=== PATIENT | male | born 1960 | race Caucasian/White ===

== ENCOUNTER → 2018-06-20 | Outpatient (REF) ==
--- NOTE | 2018-06-20 11:25 | Diagnostic Imaging Report ---
INDICATION: Pain to the left second digit. TIME OF EXAMINATION: 11:11 AM. TECHNIQUE: Three views of the left second finger were obtained. FINDINGS: There appears to be some generalized soft tissue swelling. No radiopaque foreign body is seen. The bony structures demonstrate normal alignment. No fractures are identified. The metacarpals are intact. There are some degenerative changes at the first CMC joint. IMPRESSION: Soft tissue swelling of the second digit. No acute bony abnormality is detected. Dictated by: Dictated on workstation # [id number]
== END | disposition home or self-care (01) ==
LOC: RAD 10:53
PROVIDERS: ATTEND Nurse Practitioner Family
CPT/HCPCS: 73140

== ENCOUNTER 2020-04-27 22:38 | Observation (INO) | payer BC, OTHER ==
[~2020-04-27] VITALS: Ht 175 cm; Wt 125.4 kg
--- NOTE | 2020-04-27 23:07 | ED Chest Pain ---
General Chief Complaint: Chest Pain Stated Complaint: CP X 3-4 DAYS Source: patient Exam Limitations: no limitations History of Present Illness Date Seen by Provider: Apr 27, 2020 Time Seen by Provider: 22:47 Initial Comments Patient presents ER by private conveyance from home with chief complaint that he is having chest pain substernal radiating through to his back mostly constant but will relieve for a few hours at a time. He points to the level of his xiph oid process. He denies having acid reflux or nausea. He has had his gallbladder out. He has a history of heart disease followed by Dr. Mittal although he has not seen him in over 10 years. He is not having fevers cough shortness of breath. He is not a smoker for the past 4 years. He denies high blood pressure but he has hyperlipidemia and previous coronary disease as well as he had multiple blood clots related to brain surgery for a small tumor years ago at so they put a IVC filter in place. He is not on blood thinners. He is on medicine for diabetes Metformin and aspirin, metoprolol. He claims a history of hyperlipidemia but is not on any statins. Primary care by Dr. Bautista. Allergies and Home Medications Allergies Coded Allergies: No Known Drug Allergies (Unverified , 04/27/20) Patient Home Medication List Home Medication List Reviewed: Yes Review of Systems Review of Systems Constitutional: No chills, No diaphoresis EENTM: No Blurred Vision, No Double Vision Respiratory: Denies Cough, Denies Shortness of Air Cardiovascular: See HPI, Chest Pain; Denies Edema Gastrointestinal: Denies Abdomen Distended, Denies Abdominal Pain, Denies Constipated, Denies Diarrhea, Denies Nausea Genitourinary: Denies Discharge, Denies Drainage Musculoskeletal: No back pain, No joint pain All Other Systems Reviewed Negative Unless Noted: Yes Past Sflylxt-Kbuekz-Lifyso Hx Patient Social History Alcohol Use: Denies Use Smoking Status: Former Smoker Type Used: Cigarettes Former Smoker, Quit: Jan 09, 2016 Physical Exam Vital Signs Vital Signs - First Documented 04/27/20 22:40 Temp 37.0 Pulse 89 Resp 18 B/P (MAP) 157/97 (117) O2 Delivery Room Air Capillary Refill : Height, Weight, BMI Height: '" Weight: lbs. oz. kg; BMI Method: General Appearance: No Apparent Distress, WD/WN HEENT: PERRL/EOMI, Pharynx Normal, Moist Mucous Membranes Neck: Full Range of Motion, Normal Inspection Respiratory: Chest Non Tender, Lungs Clear, Normal Breath Sounds, No Accessory Muscle Use, No Respiratory Distress Cardiovascular: Regular Rate, Rhythm, Normal Peripheral Pulses Extremity: Normal Capillary Refill, Normal Inspection Neurologic/Psychiatric: Alert, Oriented x3, No Motor/Sensory Deficits Skin: Normal Color, Warm/Dry Progress/Results/Core Measures Results/Orders Lab Results Laboratory Tests Test 04/27/20 22:50 Range/Units White Blood Count 9.9 4.3-11.0 10^3/uL Red Blood Count 5.72 H 4.30-5.52 10^6/uL Hemoglobin 16.2 13.3-17.7 g/dL Hematocrit 50 40-54 % Mean Corpuscular Volume 87 80-99 fL Mean Corpuscular Hemoglobin 28 25-34 pg Mean Corpuscular Hemoglobin Concent 33 32-36 g/dL Red Cell Distribution Width 13.2 10.0-14.5 % Platelet Count 179 130-400 10^3/uL Mean Platelet Volume 9.1 9.0-12.2 fL Immature Granulocyte % (Auto) 1 % Neutrophils (%) (Auto) 70 42-75 % Lymphocytes (%) (Auto) 18 12-44 % Monocytes (%) (Auto) 9 0-12 % Eosinophils (%) (Auto) 2 0-10 % Basophils (%) (Auto) 1 0-10 % Neutrophils # (Auto) 6.9 1.8-7.8 10^3/uL Lymphocytes # (Auto) 1.8 1.0-4.0 10^3/uL Monocytes # (Auto) 0.9 0.0-1.0 10^3/uL Eosinophils # (Auto) 0.2 0.0-0.3 10^3/uL Basophils # (Auto) 0.1 0.0-0.1 10^3/uL Immature Granulocyte # (Auto) 0.1 0.0-0.1 10^3/uL Prothrombin Time 12.9 12.2-14.7 SEC INR Comment 0.9 0.8-1.4 Activated Partial Thromboplast Time 29 24-35 SEC Sodium Level 137 135-145 MMOL/L Potassium Level 4.1 3.6-5.0 MMOL/L Chloride Level 104 98-107 MMOL/L Carbon Dioxide Level 22 21-32 MMOL/L Anion Gap 11 5-14 MMOL/L Blood Urea Nitrogen 15 7-18 MG/DL Creatinine 0.85 0.60-1.30 MG/DL Estimat Glomerular Filtration Rate > 60 BUN/Creatinine Ratio 18 Glucose Level 157 H 70-105 MG/DL Calcium Level 9.4 8.5-10.1 MG/DL Corrected Calcium 9.2 8.5-10.1 MG/DL Magnesium Level 2.1 1.6-2.4 MG/DL Total Bilirubin 0.4 0.1-1.0 MG/DL Aspartate Amino Transf (AST/SGOT) 12 5-34 U/L Alanine Aminotransferase (ALT/SGPT) 21 0-55 U/L Alkaline Phosphatase 112 40-136 U/L Myoglobin 31.3 10.0-92.0 NG/ML Troponin I < 0.028 <0.028 NG/ML B-Type Natriuretic Peptide 35.3 <100.0 PG/ML Total Protein 7.1 6.4-8.2 GM/DL Albumin 4.2 3.2-4.5 GM/DL Lipase 21 8-78 U/L My Orders Orders - PAYTON DAVID Cbc With Automated Diff (04/27/20 23:03) Magnesium (04/27/20 23:03) Chest 1 View, Ap/Pa Only (04/27/20 23:03) Comprehensive Metabolic Panel (04/27/20 23:03) Myoglobin Serum (04/27/20 23:03) Protime With Inr (04/27/20 23:03) Partial Thromboplastin Time (04/27/20 23:03) O2 (04/27/20 23:03) Lipid Panel (04/28/20 06:00) Ed Iv/Invasive Line Start (04/27/20 23:03) Lipase (04/27/20 23:03) BNP (04/27/20 23:03) Aspirin Chewable Tablet (Baby Aspirin Ch (04/27/20 23:15) Nitroglycerin 0.4 Mg Btl 25's (Nitrostat (04/27/20 23:15) Troponin I (04/27/20 22:50) Ed Iv/Invasive Line Start (04/27/20 23:50) Ns Iv 1000 Ml (Sodium Chloride 0.9%) (04/28/20 00:00) Ct Angio Chest W (04/28/20 00:01) Iohexol Injection (Omnipaque 350 Mg/Ml 1 (04/28/20 00:45) Contrast Received (Contrast Received) (04/28/20 00:45) Sodium Chloride Flush (Catheter Flush Sy (04/28/20 00:45) Ns (Ivpb) (Sodium Chloride 0.9% Ivpb Bag (04/28/20 00:45) Medications Given in ED Current Medications Medications Dose Ordered Sig/Norma Route Start Time Stop Time Status Last Admin Dose Admin Aspirin 324 mg ONCE ONCE PO 04/27/20 23:15 04/27/20 23:16 DC 04/27/20 23:26 324 MG Nitroglycerin 0.4 mg NEEDED PRN SL 04/27/20 23:15 04/27/20 23:27 0.4 MG Vital Signs/I&O 04/27/20 22:40 Temp 37.0 Pulse 89 Resp 18 B/P (MAP) 157/97 (117) O2 Delivery Room Air Progress Progress Note #1: Time: 23:17 Progress Note With his history of coronary disease, hyperlipidemia and diabetes and 3 days of chest pain with a normal EKG were going to get labs and give him aspirin and nitroglycerin for his 8 out of 10 pain. Since his pain radiates to his back we will get a lipase and will also consider the possibility of aorta and we may entertain a CT angiogram of the chest. Progress Note #2: Time: 23:45 Progress Note Patient had significant relief of pain with a single dose of nitroglycerin. His blood pressure also went down significantly to 110/70. Heart score 4 points High risk. 12-65% 30-day MACE Admit to hospital or observation. Further testing indicated. Because of his chest pain radiating to his back we will get a CT angiogram to rule out aortic issues. Initial ECG Impression Date: Apr 27, 2020 Initial ECG Impression Time: 22:40 Initial ECG Rate: 85 Initial ECG Rhythm: Normal Sinus Initial ECG Intervals: Normal Initial ECG Impression: Normal Comment Normal sinus rhythm without clinically relevant ST elevation or depression. Diagnostic Imaging Diagonstic Imaging: Xray Plain Films/CT/US/NM/MRI: chest Comments No acute cardiopulmonary processes on 1 view chest x-ray. Prominent heart shadow Reviewed: Reviewed by Me Diagonstic Imaging: CT (angiogram) Plain Films/CT/US/NM/MRI: chest Comments No evidence for pulmonary embolism. Curvilinear changes involving the right lower lobe presumed subsegmental atelectasis. No focal consolidation. No pleural effusion or pneumothorax. Reviewed: Reviewed by Me Departure Communication (Admissions) Time/Spoke to Admitting Phy: 00:50 Discussed the case with Dr. Adame and she agrees to observe the patient with c eshadiac consultation. Time/Spoke to Consulting Phy: 00:50 Discussed the case with Dr. Gilmore and he agrees to consult on the case. Impression Primary Impression: Unstable angina Disposition: ADMITTED INPATIENT Condition: Stable Admissions Decision to Admit Reason: Admit from ER (General) Decision to Admit/Date: Apr 28, 2020 Time/Decision to Admit Time: 00:01 Departure-Patient Inst. Referrals: NO,LOCAL PHYSICIAN (PCP/Family) Primary Care Physician PAYTON DAVID Apr 27, 2020 23:07
[2020-04-27 23:13] LABS: BASOPHILS # (AUTO) 0.1 10^3/uL (0.0-0.1); BASOPHILS % (AUTO) 1 % (0-10); EOSINOPHILS # (AUTO) 0.2 10^3/uL (0.0-0.3); EOSINOPHILS % (AUTO) 2 % (0-10); HEMATOCRIT 50 % (40-54); HEMOGLOBIN 16.2 g/dL (13.3-17.7); LYMPHOCYTES # (AUTO) 1.8 10^3/uL (1.0-4.0); LYMPHOCYTES % (AUTO) 18 % (12-44); MEAN CORPUSCULAR HEMOGLOBIN 28 pg (25-34); MEAN CORPUSCULAR HGB CONC 33 g/dL (32-36); MEAN CORPUSCULAR VOLUME 87 fL (80-99); MEAN PLATELET VOLUME 9.1 fL (9.0-12.2); MONOCYTES # (AUTO) 0.9 10^3/uL (0.0-1.0); MONOCYTES % (AUTO) 9 % (0-12); NEUTROPHILS # (AUTO) 6.9 10^3/uL (1.8-7.8); NEUTROPHILS % (AUTO) 70 % (42-75); PLATELET COUNT 179 10^3/uL (130-400); WHITE BLOOD COUNT 9.9 10^3/uL (4.3-11.0)
[2020-04-27] MEDS ORDERED: ASPIRIN 81 MG CHEW (CHILDREN'S ASA) PO ONE (23:15)
[2020-04-27] MEDS ORDERED: NITROGLYCERIN 0.4 MG SL TABS BTL 25'S SL PRN (23:15)
[2020-04-27 23:21] LABS: ALBUMIN 4.2 GM/DL (3.2-4.5); CHLORIDE 104 MMOL/L (98-107); INR 0.9 (0.8-1.4); POTASSIUM 4.1 MMOL/L (3.6-5.0); PROTHROMBIN TIME PATIENT 12.9 SEC (12.2-14.7); SODIUM 137 MMOL/L (135-145)
[2020-04-27 23:22] LABS: CALCIUM 9.4 MG/DL (8.5-10.1)
[2020-04-27 23:23] LABS: GLUCOSE 157 MG/DL (70-105); TOTAL PROTEIN 7.1 GM/DL (6.4-8.2)
[2020-04-27 23:24] LABS: CARBON DIOXIDE 22 MMOL/L (21-32)
[2020-04-27 23:25] LABS: BILIRUBIN,TOTAL 0.4 MG/DL (0.1-1.0)
[2020-04-27 23:27] LABS: ALKALINE PHOSPHATASE 112 U/L (40-136); CREATININE SERUM 0.85 MG/DL (0.60-1.30); GFR ESTIMATED > 60
[2020-04-27 23:28] LABS: BUN/CREATININE RATIO 18
[2020-04-27 23:30] LABS: ALANINE AMINOTRANSFERASE 21 U/L (0-55); MAGNESIUM 2.1 MG/DL (1.6-2.4)
[2020-04-27 23:31] LABS: LIPASE 21 U/L (8-78)
[2020-04-28] VITALS (14 sets, daily range): BP systolic 109–141; BP diastolic 71–86
[2020-04-28] MEDS ORDERED: IOHEXOL 350 MG/ML 100 ML (OMNIPAQUE 350) VIAL IV ONE (00:45)
[2020-04-28] MEDS ORDERED: NS 100 ML (IVPB) BAG IV ONE (00:45)
[2020-04-28] MEDS ORDERED: HOLD METFORMIN - RECEIVED CONTRAST 20 ML VIAL IV SCH (00:45)
[2020-04-28] MEDS ORDERED: CATHETER FLUSH 10 ML SYR IV PRN (00:45)
--- NOTE | 2020-04-28 02:14 | NUR ---
Received report from ED nurse Jeri.
--- NOTE | 2020-04-28 02:15 | NUR ---
TIAGO SINGH admitted to room 405-1, with an admitting diagnosis of Chest Pain, on 04/28/20 from [facility] via Wheelchair, accompanied by staff.TIAGO SINGH introduced to surroundings, call light, bed controls, phone, TV, temperature control, lights, meal times, smoking policy, visitor policy, side rail policy, bathrooms and showers. Patient Rights given to patient in the handbook. TIAGO SINGH verbalizes understanding that [facility] is not responsible for the loss or damage to any personal effects or valuables that are kept in the patients posession during their hospitalization. TIAGO SINGH verbalizes understanding of Interdisciplinary Patient Education.
--- NOTE | 2020-04-28 02:30 | NUR ---
No telemetry units available at this time, checked with all nurses on 4th and ARU, no pts able to come off tele. Called mix house tender Juany, she stated she would check and see if she could find one. Awaiting response at this time.
[2020-04-28] MEDS ORDERED: NITROGLYCERIN 0.4 MG SL TABS BTL 25'S SL PRN (02:45)
[2020-04-28] MEDS ORDERED: ONDANSETRON 4 MG/2 ML (SDV) Z0FRAN IVP PRN (02:45)
[2020-04-28] MEDS ORDERED: ACETAMINOPHEN 325 MG TABLET PO PRN (02:45)
[2020-04-28] MEDS ORDERED: ANTACID SUSP 30 ML UDC (MYLANTA) PO PRN (02:45)
[2020-04-28] MEDS ORDERED: morphine INJ 4 MG/ML 1 ML (VIAL/SYRINGE) IV PRN (02:45)
[2020-04-28 05:45] LABS: BASOPHILS % (AUTO) 0 % (0-10); EOSINOPHILS # (AUTO) 0.2 10^3/uL (0.0-0.3); EOSINOPHILS % (AUTO) 3 % (0-10); HEMATOCRIT 45 % (40-54); HEMOGLOBIN 14.8 g/dL (13.3-17.7); LYMPHOCYTES # (AUTO) 1.4 10^3/uL (1.0-4.0); LYMPHOCYTES % (AUTO) 18 % (12-44); MEAN CORPUSCULAR HEMOGLOBIN 29 pg (25-34); MEAN CORPUSCULAR HGB CONC 33 g/dL (32-36); MEAN CORPUSCULAR VOLUME 87 fL (80-99); MEAN PLATELET VOLUME 9.4 fL (9.0-12.2); MONOCYTES # (AUTO) 0.8 10^3/uL (0.0-1.0); MONOCYTES % (AUTO) 10 % (0-12); NEUTROPHILS # (AUTO) 5.5 10^3/uL (1.8-7.8); NEUTROPHILS % (AUTO) 69 % (42-75); PLATELET COUNT 182 10^3/uL (130-400)
--- NOTE | 2020-04-28 05:59 | Diagnostic Imaging Report ---
INDICATION: Chest pain. Portable chest 11:31 PM FINDINGS: Heart size and pulmonary vascularity are normal. Lungs are clear. There are no effusions or pneumothoraces. IMPRESSION: Negative chest. Dictated by: Dictated on workstation # [id number]
[2020-04-28 06:05] LABS: ALBUMIN 3.6 GM/DL (3.2-4.5); CHLORIDE 108 MMOL/L (98-107); POTASSIUM 4.1 MMOL/L (3.6-5.0); SODIUM 137 MMOL/L (135-145)
[2020-04-28 06:06] LABS: CALCIUM 8.6 MG/DL (8.5-10.1)
[2020-04-28 06:07] LABS: TOTAL PROTEIN 6.1 GM/DL (6.4-8.2); TRIGLYCERIDES 279 MG/DL (<150); VLDL CHOLESTEROL 56 MG/DL (5-40)
[2020-04-28 06:08] LABS: CARBON DIOXIDE 20 MMOL/L (21-32); GLUCOSE 140 MG/DL (70-105)
[2020-04-28 06:09] LABS: BILIRUBIN,TOTAL 0.5 MG/DL (0.1-1.0)
[2020-04-28] MEDS: inSUlin ASPART (NovoLOG) 1 UNIT/0.01 ML (CHARGE PER UNIT) SC SCH ×4 (06:09→21:29)
[2020-04-28 06:11] LABS: ALKALINE PHOSPHATASE 97 U/L (40-136); CREATININE SERUM 0.73 MG/DL (0.60-1.30); GFR ESTIMATED > 60
[2020-04-28 06:12] LABS: BUN/CREATININE RATIO 18; CHOLESTEROL 177 MG/DL (< 200)
[2020-04-28 06:13] LABS: HDL CHOLESTEROL 25 MG/DL (40-60)
[2020-04-28 06:14] LABS: ALANINE AMINOTRANSFERASE 18 U/L (0-55)
--- NOTE | 2020-04-28 06:27 | Diagnostic Imaging Report ---
EXAMINATION: CT angiography of the chest. TECHNIQUE: Contrast enhanced thin section helical images were obtained through the chest with intravenous contrast timed for the optimal opacification of the arterial structures per CTA protocol. Post-processing, reconstructions and interpretation of angiographic images of the vessels was performed. 3D MIP reconstructions were performed and reviewed. All CT scans use one or more of the following dose optimizing techniques: automated exposure control, MA and/or KvP adjustment based on a patient size and exam type, or iterative reconstruction. HISTORY: Radiating chest pain. COMPARISON: Chest radiograph 04/27/2020. FINDINGS: Vascular: The thoracic aorta is normal in caliber. There are scattered calcified and noncalcified plaque throughout the thoracic and upper abdominal aorta. No significant stenosis, aneurysm, or dissection. Although the timing of the study is not ideal for evaluation of pulmonary arteries, there are no obvious filling defects seen within the pulmonary arteries. IVC filter is present. Thyroid: The thyroid is normal. Mediastinum: Heart size is normal without significant pericardial effusion. No suspicious lymphadenopathy. Lungs and airways: The lungs are clear without consolidation, pleural effusion, or pneumothorax. There is a small likely lipoma along the lateral right upper lobe pleural space (series 2 image 62). Minimal right basilar atelectasis. The airways are normal. Upper abdomen: Cholecystectomy. Mild wall thickening of the stomach and distal esophagus. Musculoskeletal: Degenerative changes of the spine without suspicious osseous lesion or compression fracture. IMPRESSION: 1. Atherosclerosis of the aorta without aneurysm, dissection, or significant stenosis. 2. Although timing is not optimal for evaluation of the pulmonary arteries, there are no obvious findings of pulmonary embolus. 3. No other acute abnormality in the chest. 4. Mild wall thickening of the distal esophagus and stomach. Recommend correlation with upper endoscopy. 5. Otherwise, Agree with preliminary interpretation. Dictated by: Dictated on workstation # [id number]
[2020-04-28] MEDS: meTOproloL SUCCINATE 50 MG (TOPROL XL) TAB PO SCH (08:24)
[2020-04-28] MEDS: ENOXAPARIN 40 MG/0.4 ML (LOVENOX) SYR SC SCH ×2 (08:25→21:29)
[2020-04-28] MEDS ORDERED: ASPIRIN E.C. 81 MG (ECOTRIN) TAB PO SCH (09:00)
[2020-04-28] MEDS ORDERED: ASPI-1238 PO (10:04)
[2020-04-28] MEDS ORDERED: METO50TA15 PO (10:04)
[2020-04-28] MEDS ORDERED: GARL500C2 PO (10:04)
[2020-04-28] MEDS ORDERED: CINN500C2 PO (10:04)
[2020-04-28] MEDS ORDERED: DAPA1TAB5 PO (10:04)
[2020-04-28] MEDS ORDERED: KRIL1CAP35 PO (10:04)
--- NOTE | 2020-04-28 10:19 | NUR ---
SPOKE WITH THE PT TO COMPLETE THE MED REC PT DENIES TAKING ANY PRESCRIPTION/OTC MEDS I DID UPDATE THE PREFERRED PHARMACY TO [facility] PER THE PTS REQUEST Addendum: 04/30/20 at 1148 by RENAE FLORES CPhT WRONG PER DISREGARD Addendum: 04/30/20 at 1151 by RENAE FLORES mechanical developer prover SPOKE WITH THE PT AND WENT THRU THE EXT MED HISTORY TO COMPLETE THE MED REC PT COULDNT REMEMBER THE NAME OF HIS MEDICATIONS- I NAMED THEM USING THE EXT MED HISTORY AND PT WAS ABLE TO TELL ME HOW/WHEN HE TAKES EACH OTC MEDS: MEGARED ASPIRIN 81MG CINNAMON GARLIC
[2020-04-28] MEDS ORDERED: NS IV 1000 ML 1,000 ML IV SCH ×2 (10:30)
--- NOTE | 2020-04-28 10:31 | Consultation-Cardiology ---
HPI-Cardiology Cardiology Consultation: Date of Consultation 04/28/20 Time Seen by a Provider: 10:10 Date of Admission 04-27-20 Attending Physician Leanne Adame DO Admitting Physician Chivo Bautista MD Consulting Physician Maricruz Gilmore MD HPI: Chief Complaint: Chest pain Mr. Lei is a 59 yr old male admitted to 405 from the ED with c/o CP. He states 3 days ago he began to have lower, left sided chest pain which radiated across his lower chest and through into his back. States the pain is mod to severe, lasting several hours and then would gradually resolve. He reports SOB, nausea, vomiting with the discomfort. Describes the pain as stabbing, pressure. No change in discomfort to activity or emotional stress. Reports increased fatigue over the last few days. No palpitations, syncope or near syncope. No c/o LE swelling. He states he continues to have mild chest pain this morning. He reports he has a h/o CAD and is concerned the chest pain is d/t a coronary artery blockage. Review of Systems-Cardiology Review of Systems Constitutional: No chills, No fever; malaise, tiredness Eyes: No vision change Ears/Nose/Throat: No epistaxis, No nasal drainage, No recent hearing loss, No ulcerations Respiratory: As described under HPI Cardiovascular: As described under HPI Gastrointestinal: As described under HPI; No constipation, No diarrhea Genitourinary: No dysuria, No hematuria Musculoskeletal: no symptoms reported Skin: No rash on exposed areas, No ulcerations on exposed areas Psychiatric/Neurological: No anxiety, No depression, No seizure, No focal weakness, No syncope Hematologic: No bleeding abnormalities All Other Systems Reviewed Negative Unless Noted: Yes QHR-Hlbgap-Dktdwk Hx Patient Social History Smoking Status: Former Smoker Have you traveled recently?: No Alcohol Use?: No Pt feels they are or have been: No Past Medical History PMH As described under Assessment. Family Medical History Family Medical History: He reports his father had heart dz. He reports a brother who has had a stroke. Allergies and Home Medications Allergies Coded Allergies: No Known Drug Allergies (Unverified , 04/27/20) Home Medications Aspirin 81 Mg Tablet.dr, 81 MG PO DAILY, (Reported) Cinnamon Bark 500 Mg Capsule, 500 MG PO DAILY, (Reported) Dapagliflozin/Metformin HCl 1 Each Tab.bp.24h, 1 EA PO DAILY, (Reported) Garlic 500 Mg Capsule, 500 MG PO DAILY, (Reported) Krill/Om-3/Dha/Epa/Phospho/Ast 1 Each Capsule, 1 EACH PO DAILY, (Reported) Metoprolol Tartrate 50 Mg Tablet, 50 MG PO DAILY, (Reported) Patient Home Medication List Home Medication List Reviewed: Yes Physical Exam-Cardiology Physical Exam Vital Signs/I&O 04/28/20 04/29/20 22:50 01:00 Temp 35.2 Pulse 88 75 Resp 16 B/P (MAP) 119/71 (87) Pulse Ox 95 O2 Delivery Room Air 04/29/20 00:00 Intake Total 460 ml Balance 460 ml Capillary Refill : Less Than 3 Seconds Constitutional: AAO x 3, well-developed, well-nourished HEENT: PERRL, hearing is well preserved, oral hygience is good Neck: No carotid bruit; carotid pulses are 2 + bilaterally Respiratory: No accessory muscle use, No respiratory distress; chest expansion is symmetric, chest is bilaterally symmetric, lungs clear to auscultation Cardiovascular: regular rate-rhythm; No JVD; S1 and S2 Gastrointestinal: No tender; soft, round, audible bowel sounds Extremities: no lower extremity edema bilateral Neurologic/Psychiatric: grossly intact (moves all extremities) Skin: No rash on exposed areas, No ulcerations on exposed areas Data Review Labs Laboratory Tests 04/28/20 10:57: Troponin I < 0.028 04/28/20 11:39: Glucometer 133H 04/28/20 11:50: Coronavirus 2019 (KATHERINE) Negative 04/28/20 20:53: Glucometer 130H 04/29/20 04:50: White Blood Count 7.2, Red Blood Count 5.15, Hemoglobin 14.7, Hematocrit 45, Mean Corpuscular Volume 87, Mean Corpuscular Hemoglobin 29, Mean Corpuscular Hemoglobin Concent 33, Red Cell Distribution Width 13.3, Platelet Count 159, Mean Platelet Volume 9.3, Sodium Level 135, Potassium Level 4.1, Chloride Level 106, Carbon Dioxide Level 20L, Anion Gap 9, Blood Urea Nitrogen 11, Creatinine 0.73, Estimat Glomerular Filtration Rate > 60, BUN/Creatinine Ratio 15, Glucose Level 136H, Calcium Level 8.5 Microbiology 04/28/20 MRSA Screen - Final, Complete MRSA not isolated Radiology NAME: INGALSBE,TIAGO E [facility] REC#: [id number] PT STATUS: ADM [place] : 1960 PHYSICIAN: PAYTON DAVID MD ADMIT DATE: 04/28/20/ Signed Date of Exam:04/28/20 CT ANGIO CHEST W EXAMINATION: CT angiography of the chest. TECHNIQUE: Contrast enhanced thin section helical images were obtained through the chest with intravenous contrast timed for the optimal opacification of the arterial structures per CTA protocol. Post-processing, reconstructions and interpretation of angiographic images of the vessels was performed. 3D MIP reconstructions were performed and reviewed. All CT scans use one or more of the following dose optimizing techniques: automated exposure control, MA and/or KvP adjustment based on a patient size and exam type, or iterative reconstruction. HISTORY: Radiating chest pain. COMPARISON: Chest radiograph 04/27/2020. FINDINGS: Vascular: The thoracic aorta is normal in caliber. There are scattered calcified and noncalcified plaque throughout the thoracic and upper abdominal aorta. No significant stenosis, aneurysm, or dissection. Although the timing of the study is not ideal for evaluation of pulmonary arteries, there are no obvious filling defects seen within the pulmonary arteries. IVC filter is present. Thyroid: The thyroid is normal. Mediastinum: Heart size is normal without significant pericardial effusion. No suspicious lymphadenopathy. Lungs and airways: The lungs are clear without consolidation, pleural effusion, or pneumothorax. There is a small likely lipoma along the lateral right upper lobe pleural space (series 2 image 62). Minimal right basilar atelectasis. The airways are normal. Upper abdomen: Cholecystectomy. Mild wall thickening of the stomach and distal esophagus. Musculoskeletal: Degenerative changes of the spine without suspicious osseous lesion or compression fracture. IMPRESSION: 1. Atherosclerosis of the aorta without aneurysm, dissection, or significant stenosis. 2. Although timing is not optimal for evaluation of the pulmonary arteries, there are no obvious findings of pulmonary embolus. 3. No other acute abnormality in the chest. 4. Mild wall thickening of the distal esophagus and stomach. Recommend correlation with upper endoscopy. 5. Otherwise, Agree with preliminary interpretation. Dictated by: Dictated on workstation # [id number] Dict: 04/28/20 0620 Trans: 04/28/20 0757 AMRY [id number] Interpreted by: LARISA,RANDY C DO Electronically signed by: RANDY PERES DO 04/28/20 0757 ECG Impression ECG Initial ECG Rhythm: Normal Sinus A/P-Cardiology Assessment/Admission Diagnosis Chest pain of undetermined etiology - features suggestive of unstable angina H/O CAD with stent placement at [facility] approx 14 yrs ago - details unknown H/O MPI [place] [address] 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 Discussed procedure, risks, benefits and potential complications of cardiac cath with possible ad hoc coronary intervention. He provides informed consent. Will proceed today. Add BB, ASA and statin to regimen Monitor lab closely Replace electrolytes as indicated We would like to thank medical services for this consult Further recs will be based on his hospital course YAO BRAVO Apr 28, 2020 10:31
[2020-04-28 10:43] LABS: INR 0.9 (0.8-1.4); PROTHROMBIN TIME PATIENT 12.5 SEC (12.2-14.7)
[2020-04-28] MEDS ORDERED: HEParin (CATH LAB) 2,000 ML IV ONE (10:50)
[2020-04-28] MEDS ORDERED: LIDOCAINE 1% INJ 20 ML 20 ML VIAL ONE (10:50)
[2020-04-28] MEDS ORDERED: NS IV 1000 ML 0 ML ONE (10:50)
--- NOTE | 2020-04-28 11:01 | NUR ---
"RD ASSESSMENT PMHx: HLD; CAD; DM; PT INTERACTION: Pt was awake and pleasant during nutrition consult for MST score. Pt states current appetite is good. Note no meals have been recorded, per chart review. Pt states following a high-fiber diet at home, and has no issues with chewing/swallowing food. Pt states some recent issues with nausea and vomiting, and that his last BM was 04/27. Note pt not currently on bowel regimen per chart review. Pt states current DM management is good. Note unable to determine recent HbA1c, per chart review. Pt states recent 10# wt gain, but was unsure of timeframe. Note unable to determine recent wt hx, per chart review. Upon visual assessment, pt appears to be well nourished with no visible signs of muscle/fat wasting, and a BMI of 40.9 (obese class III for age). Est. kcal needs: 2911-9342 kcal | 15-18 kcal/kg Est. Pro needs: 100-125 g Pro | 0.8-1.0 g Pro/kg PES STATEMENT: Given wt hx and visual assessment, pt does not meet criteria for malnutrition per ASPEN guidelines. Inadequate oral intake (NI-2.1) related to nausea and vomiting, as evidenced by pt interview. INTERVENTION: Note pt is currently NPO, pending procedure. Would recommend diet advancement when medically able and as tolerated. Offered diet education on DM management, but pt declined at this time. May attempt to offer again prior to discharge. Will continue to follow and reassess as pt needs, intake, and status change. Delon PADILLA MS RD [phone] cell"
--- NOTE | 2020-04-28 12:37 | History & Physical-Hospitalist ---
History of Present Illness HPI/Chief Complaint Twin Lei is a 59-year-old male with past medical history of hypertension, diabetes, hyperlipidemia, coronary artery disease, who presented with chest pain. He reports that the pain started last night. It is located on the left lower part of his sternum. He describes it as sharp. It radiates through to his back. He denies any radiation to his neck, jaw, or arms. He denies any pleuritic pain. He denies any positional component. He reports associated shortness of breath. He reports nausea. He denies diaphoresis. He denies any fevers or chills. He denies any cough. His stent was placed about 10 years ago. He is a nonsmoker. He does not drink alcohol. He does not use illicit drugs. Source: patient Exam Limitations: no limitations Date Seen 04/28/20 Time Seen by a Provider: 09:20 Attending Physician Leanne Adame John E MD Referring Physician Date of Admission Apr 28, 2020 at 00:50 Home Medications & Allergies Home Medications Reviewed patient Home Medication Reconciliation performed by pharmacy medication reconciliations orthodontic technician and/or nursing. Patients Allergies have been reviewed. Allergies Allergies Coded Allergies No Known Drug Allergies (Unverified04/27/20) Past Vggmupm-Guhwek-Efsxfg Hx Past Med/Social Hx: Reviewed Nursing Past Med/Soc Hx Patient Social History Alcohol Use: Denies Use Recreational Drug Use: No Smoking Status: Former Smoker Former Smoker, Quit: Jan 09, 2016 Type Used: Cigarettes Recent Foreign Travel: No Contact w/other who traveled: No Recent Infectious Disease Expo: No Past Medical History Surgeries: Coronary Stent Cardiac: Hypertension Endocrine: Diabetes, Non-Insulin dep Review of Systems Constitutional: no symptoms reported EENTM: no symptoms reported Respiratory: short of breath Cardiovascular: chest pain Gastrointestinal: nausea Genitourinary: no symptoms reported Musculoskeletal: no symptoms reported Skin: no symptoms reported Psychiatric/Neurological: No Symptoms Reported Physical Exam Physical Exam Vital Signs Vital Signs - First Documented 04/27/20 04/28/20 22:40 02:19 Temp 37.0 Pulse 89 Resp 18 B/P (MAP) 157/97 (117) Pulse Ox 98 O2 Delivery Room Air Capillary Refill : Less Than 3 Seconds Height, Weight, BMI Height: '" Weight: lbs. oz. kg; 41.00 BMI Method: General Appearance: No Apparent Distress, Obese HEENT: PERRL/EOMI, Pharynx Normal Neck: Normal Inspection, Supple Respiratory: No Chest Non Tender; Lungs Clear, Normal Breath Sounds, No Respiratory Distress Cardiovascular: Regular Rate, Rhythm, No Edema, No Murmur Gastrointestinal: Normal Bowel Sounds, Non Tender, Soft Extremity: Normal Inspection, Non Tender, No Pedal Edema Neurologic/Psychiatric: Alert, Oriented x3, No Motor/Sensory Deficits, Normal Mood/Affect Skin: Normal Color, Warm/Dry Results Results/Procedures Labs Laboratory Tests 04/27/20 22:50 04/28/20 05:35 Patient resulted labs reviewed. Imaging: Reviewed Imaging Report Assessment/Plan Admission Diagnosis Chest pain Admission Status: Observation Assessment and Plan Chest pain CAD HLD HTN EKG unremarkable Troponin negative Cardiology consulted Planning for left heart cath today Continue ASA and Metoprolol Begin Lipitor T2DM Sliding scale insulin Morbid obesity Clinically significant, no acute management needs DVT prophylaxis: Lovenox Diagnosis/Problems Diagnosis/Problems (1) Chest pain Status: Acute (2) CAD (coronary artery disease) Status: Chronic (3) HTN (hypertension) Status: Chronic (4) HLD (hyperlipidemia) Status: Acute (5) T2DM (type 2 diabetes mellitus) Status: Chronic Qualifiers: Diabetes mellitus penitentiary insulin use: without penitentiary use (6) Morbid obesity Status: Chronic SHARMILA QUESADA MD Apr 28, 2020 12:37
--- NOTE | 2020-04-28 13:52 | NUR ---
Patient hits call light and states that he is experiencing chest pain at this time. Nitro administered. BP 137/86 HR 86. Patient rating pain at a 9 radiating to the back. Patient is pale and crying silently.
--- NOTE | 2020-04-28 13:58 | NUR ---
Patient reassessed at this time. States his pain level is now at a 2. Patient BP is 128/75, HR 93. Dr. 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 Will continue to monitor.
--- NOTE | 2020-04-28 14:30 | NUR ---
Patient went down for heart catheterization at approximately this time.
[2020-04-28] MEDS ORDERED: fentaNYL INJECTION 100 MCG/2 ML AMP ONE (14:54)
[2020-04-28] MEDS ORDERED: MIDAZOLAM 5 MG/5 ML (VERSED) VIAL ONE (14:54)
[2020-04-28] MEDS ORDERED: HEParin 1000 UNIT/ML (10ML VIAL) FOR BOLUS ONE (15:24)
[2020-04-28] MEDS ORDERED: EPTIFIBATIDE BOLUS 20 ML IV ONE (15:24)
[2020-04-28] MEDS ORDERED: EPTIFIBATIDE BOLUS 10 ML IV ONE (15:32)
[2020-04-28] MEDS ORDERED: CLOPIDOGREL 300 MG (PLAVIX) TABLET PO ONE (16:22)
[2020-04-28] MEDS ORDERED: ASPIRIN 81 MG CHEW (CHILDREN'S ASA) ONE (16:22)
--- NOTE | 2020-04-28 16:33 | Consultation-Cardiology ---
HPI-Cardiology Cardiology Consultation: Date of Consultation 04/28/20 Time Seen by a Provider: 14:00 Date of Admission Attending Physician Promise Chavez MD Admitting Physician Chivo Bautista MD Consulting Physician LULY HUNT MD, MA, FACP, FACC, FSCAI, CCDS HPI: Chief Complaint: CC: Chest pain HPI Mr. Lei is a 59 yr old male admitted to 405 from the ED with c/o CP. He states 3 days ago he began to have lower, left sided chest pain which radiated across his lower chest and through into his back. States the pain is mod to severe, lasting several hours and then would gradually resolve. He reports SOB, nausea, vomiting with the discomfort. Describes the pain as stabbing, pressure. No change in discomfort to activity or emotional stress. Reports increased fatigue over the last few days. No palpitations, syncope or near syncope. No c/o LE swelling. He states he continues to have mild chest pain this morning. He reports he has a h/o CAD and is concerned the chest pain is d/t a coronary artery blockage. Review of Systems-Cardiology Review of Systems Constitutional: No chills, No fever; malaise, tiredness Eyes: No vision change Ears/Nose/Throat: No epistaxis, No nasal drainage, No recent hearing loss, No ulcerations Respiratory: As described under HPI Cardiovascular: As described under HPI Gastrointestinal: As described under HPI; No constipation, No diarrhea Genitourinary: No dysuria, No hematuria Musculoskeletal: no symptoms reported Skin: No rash on exposed areas, No ulcerations on exposed areas Psychiatric/Neurological: No anxiety, No depression, No seizure, No focal weakness, No syncope Hematologic: No bleeding abnormalities All Other Systems Reviewed Negative Unless Noted: Yes EVE-Ejbxqh-Vfpdvf Hx Patient Social History Smoking Status: Former Smoker Have you traveled recently?: No Alcohol Use?: No Pt feels they are or have been: No Past Medical History PMH As described under Assessment. Family Medical History Family Medical History: He reports his father had heart dz. He reports a brother who has had a stroke. Allergies and Home Medications Allergies Coded Allergies: No Known Drug Allergies (Unverified , 04/27/20) Home Medications Aspirin 81 Mg Tablet.dr, 81 MG PO DAILY, (Reported) Cinnamon Bark 500 Mg Capsule, 500 MG PO DAILY, (Reported) Dapagliflozin/Metformin HCl 1 Each Tab.bp.24h, 1 EA PO DAILY, (Reported) Garlic 500 Mg Capsule, 500 MG PO DAILY, (Reported) Krill/Om-3/Dha/Epa/Phospho/Ast 1 Each Capsule, 1 EACH PO DAILY, (Reported) Metoprolol Tartrate 50 Mg Tablet, 50 MG PO DAILY, (Reported) Patient Home Medication List Home Medication List Reviewed: Yes Physical Exam-Cardiology Physical Exam Vital Signs/I&O 04/28/20 04/28/20 04/28/20 04/28/20 04:45 08:00 08:13 12:00 Temp 35.5 35.1 35.1 Pulse 80 97 102 87 Resp 20 20 20 B/P (MAP) 126/77 (93) 141/83 (102) 129/75 (93) Pulse Ox 96 96 96 O2 Delivery Room Air Room Air Room Air 04/28/20 04/28/20 12:36 13:50 Pulse 82 82 B/P (MAP) 137/86 (103) Pulse Ox 96 O2 Delivery Room Air Capillary Refill : Less Than 3 Seconds Constitutional: AAO x 3, well-developed, well-nourished HEENT: PERRL, hearing is well preserved, oral hygience is good Neck: No carotid bruit; carotid pulses are 2 + bilaterally Respiratory: No accessory muscle use, No respiratory distress; chest expansion is symmetric, chest is bilaterally symmetric, lungs clear to auscultation Cardiovascular: regular rate-rhythm; No JVD; S1 and S2 Gastrointestinal: No tender; soft, round, audible bowel sounds Extremities: no lower extremity edema bilateral Neurologic/Psychiatric: grossly intact (moves all extremities) Skin: No rash on exposed areas, No ulcerations on exposed areas Data Review Labs Laboratory Tests 04/27/20 22:50: White Blood Count 9.9, Red Blood Count 5.72H, Hemoglobin 16.2, Hematocrit 50, Mean Corpuscular Volume 87, Mean Corpuscular Hemoglobin 28, Mean Corpuscular Hemoglobin Concent 33, Red Cell Distribution Width 13.2, Platelet Count 179, Mean Platelet Volume 9.1, Immature Granulocyte % (Auto) 1, Neutrophils (%) (Auto) 70, Lymphocytes (%) (Auto) 18, Monocytes (%) (Auto) 9, Eosinophils (%) (Auto) 2, Basophils (%) (Auto) 1, Neutrophils # (Auto) 6.9, Lymphocytes # (Auto) 1.8, Monocytes # (Auto) 0.9, Eosinophils # (Auto) 0.2, Basophils # (Auto) 0.1, Immature Granulocyte # (Auto) 0.1, Prothrombin Time 12.9, INR Comment 0.9, Activated Partial Thromboplast Time 29, Sodium Level 137, Potassium Level 4.1, Chloride Level 104, Carbon Dioxide Level 22, Anion Gap 11, Blood Urea Nitrogen 15, Creatinine 0.85, Estimat Glomerular Filtration Rate > 60, BUN/Creatinine Rat io 18, Glucose Level 157H, Calcium Level 9.4, Corrected Calcium 9.2, Magnesium Level 2.1, Total Bilirubin 0.4, Aspartate Amino Transf (AST/SGOT) 12, Alanine Aminotransferase (ALT/SGPT) 21, Alkaline Phosphatase 112, Myoglobin 31.3, Trop onin I < 0.028, B-Type Natriuretic Peptide 35.3, Total Protein 7.1, Albumin 4.2, Lipase 21 04/28/20 05:35: White Blood Count 8.0, Red Blood Count 5.16, Hemoglobin 14.8, Hematocrit 45, Mean Corpuscular Volume 87, Mean Corpuscular Hemoglobin 29, Mean Corpuscular Hemoglobin Concent 33, Red Cell Distribution Width 13.1, Platelet Count 182, Mean Platelet Volume 9.4, Immature Granulocyte % (Auto) 1, Neutrophils (%) (Auto) 69, Lymphocytes (%) (Auto) 18, Monocytes (%) (Auto) 10, Eosinophils (%) (Auto) 3, Basophils (%) (Auto) 0, Neutrophils # (Auto) 5.5, Lymphocytes # (Auto) 1.4, Monocytes # (Auto) 0.8, Eosinophils # (Auto) 0.2, Basophils # (Auto) 0.0, Immature Granulocyte # (Auto) 0.0, Prothrombin Time 12.5, INR Comment 0.9, Activated Partial Thromboplast Time 30, Sodium Level 137, Potassium Level 4.1, Chloride Level 108H, Carbon Dioxide Level 20L, Anion Gap 9, Blood Urea Nitrogen 13, Creatinine 0.73, Estimat Glomerular Filtration Rate > 60, BUN/Creatinine Ratio 18, Glucose Level 140H, Calcium Level 8.6, Corrected Calcium 8.9, Total Bilirubin 0.5, Aspartate Amino Transf (AST/SGOT) 12, Alanine Aminotransferase (ALT/SGPT) 18, Alkaline Phosphatase 97, Troponin I < 0.028, Total Protein 6.1L, Albumin 3.6, Triglycerides Level 279H, Cholesterol Level 177, LDL Cholesterol Direct 127, VLDL Cholesterol 56H, HDL Cholesterol 25L 04/28/20 10:57: Troponin I < 0.028 04/28/20 11:39: Glucometer 133H 04/28/20 11:50: Coronavirus 2019 (KATHERINE) Negative A/P-Cardiology Assessment/Admission Diagnosis CAD - Cor stent placement at [facility] in 2011, details not known to the patient - Presentation with unstable angina on 04/28/19 - Card cath of 04/28/20 showed long 90% stenosis of prox, dominant RCA, stented successfully with Xience Huyen 2.75 x 28 mm stent; HAND SURGEON within a stented segment of the prox LCx extending into OM1 to which attempt at PCI was unsuccessful; 60- 70% prox D1, 50% mid LAD; LVEDP 11 mmHg; posterobasal hypokinesis of LV; LVEF 50-55% H/O non-cancerous tumor/cyst of the brain in removed at [facility] H/O DVT at the time of hospitalization at [facility] in resulting in PE with subsequent IVC filter placement - states completed 6 months of warfarin tx at that time HTN HLD GERD DM 2 Previous h/o tobaccoism - quit in or around 2014 Discussion and Recomendations Consent obtained for cath and possible ad hoc PCI when I saw the patient at approx 2 pm. Cath and PCI then done and summarized above Treat with DAPT, statin, and bb Monitor labs Advised to continue to refrain from tobacco use LULY HUNT MD FACP FAC CCDS Apr 28, 2020 16:33
[2020-04-28] MEDS ORDERED: PATIENT MAY USE OWN MEDS, ALL PO SCH (16:45)
--- NOTE | 2020-04-28 17:00 | NUR ---
Updated patients at this time. Patient has not arrived back from heart cath yet. Informed her she would be contacted once the patient arrived back to the floor by this RN
--- NOTE | 2020-04-28 17:15 | NUR ---
PT ARRIVED TO FLOOR, R GROIN SITE SOFT NON TENDER TO TOUCH. DISTAL PULSES PALPABLE. SCANT AMOUNT OF DRAINAGE TO DRESSING, WILL CONTINUE TO MONITOR.
--- NOTE | 2020-04-28 18:30 | NUR ---
Gave report to Marcellus DUNBAR in cardiac step down at this time.
[2020-04-28] MEDS: NS IV 1000 ML 1,000 ML IV SCH (18:48)
--- NOTE | 2020-04-28 20:31 | CARDIAC CATHETERIZATION ---
DATE OF SERVICE: 04/28/2020 CARDIAC CATHETERIZATION AND CORONARY INTERVENTION The patient is a 59-year-old gentleman who has multiple coronary artery disease risk factors and who has a history of coronary artery disease. He states that he has had stenting to an unknown vessel in 2011 at [facility] in [place], [place]. He presented with symptoms suggestive of unstable angina. Cardiac catheterization was carried out after having obtained an informed consent for cardiac catheterization and possible ad hoc coronary intervention. DESCRIPTION OF PROCEDURE: He was brought to the cardiac catheterization laboratory. Right groin was prepared and draped in the usual sterile fashion. Lidocaine 1% was used for local anesthesia. Modified Seldinger technique was used to advance a 5-Solomon Islander sheath in right femoral artery. A 5-Sol[place] Islander JL4 catheter was used for left coronary angiography, 5-Sol[place] Islander JR4 catheter was used for right coronary angiography, 5-Sol[place] Islander pigtail catheter was used for left heart catheterization and left ventricular angiography. PERCUTANEOUS INTERVENTION TO THE RIGHT CORONARY ARTERY: The right coronary artery was exhibiting 90% proximal stenosis. Percutaneous intervention was carried out. We exchanged the sheath over a wire for a 6-Solomon Islander sheath. We used a 6-Sol[place] Islander JR4 guide catheter with side holes. We advanced a Choice PT Graphix wire across the lesion and the tip was placed in the distal vessel. Balloon angioplasty was carried out with a 2.5 x 30 mm balloon. Subsequently, the lesion was stented with Xience Huyen 2.75 x 28 mm stent that was deployed at 16 atmospheres. Subsequent angiography did not reveal any significant residual stenosis at the previous site of 90% stenosis. The distal right coronary artery has up to 50% stenosis that were not intervened on. ATTEMPT AT PERCUTANEOUS INTERVENTION TO A CHRONIC TOTAL OCCLUSION OF THE LEFT CIRCUMFLEX: The left circumflex appears to have a chronic total occlusion within the stented segment that starts in the proximal left circumflex and extending into the first obtuse marginal. We used a 6-Solomon Islander JL4 guide catheter. We used several wires to try and cross the lesion, but we were unsuccessful. The angioplasty equipment was then removed. Angiography of the right femoral artery was carried out through the sheath. Mynx was not successful. Manual pressure was used to achieve hemostasis. He tolerated the procedure well. HEMODYNAMICS: Left ventricular end-diastolic pressure following coronary angiography was 11 mmHg. There is no significant pressure gradient on pullback across the aortic valve. Ascending aortic pressure was 112/71 with a mean of 90 mmHg. CORONARY ANGIOGRAPHY: Coronary calcification is seen involving all coronary vessels. Left main coronary artery does not exhibit significant obstructive disease. Left anterior descending artery has 50% stenosis in its mid portion. The first diagonal of the left anterior descending artery has 60% to 70% proximal stenosis. Left circumflex artery appears to have chronic total occlusion of the standard segment that begins in the proximal left circumflex and extends into the first obtuse marginal. Attempted percutaneous intervention to this vessel was unsuccessful. Right coronary artery is dominant. It was exhibiting 90% proximal stenosis to which successful stenting was carried out and there is no significant residual stenosis following deployment of Xience Huyen 2.75 x 28 mm stent. The distal right coronary artery has multiple stenoses up to approximately 50%. LEFT VENTRICULAR ANGIOGRAPHY: Left ventricular angiography was carried out in the right anterior oblique projection. Global left ventricular systolic function appears fairly well preserved. Ejection fraction is 50 to 55%. There appears to be hypokinesis of the posterobasal wall of the left ventricle. CONCLUSIONS: 1. Coronary artery disease that is detailed above. The right coronary artery had 90% proximal stenosis that appeared to be the culprit lesion. This was successfully stented with Alpine Xience 2.75 x 28 mm stent. Distally, there are up to 50% stenoses in the right coronary. The left circumflex artery appears to have chronic total occlusion within a stented segment that begins in the proximal left circumflex and extends into the first obtuse marginal. The left anterior descending artery has 50% mid vessel stenosis and its first diagonal branch has 60% to 70% proximal stenosis. 2. Normal left ventricular end-diastolic pressure. 3. Well preserved global left ventricular systolic function with ejection fraction of 50 to 55%. 4. Posterior basal hypokinesis. DISCUSSION AND RECOMMENDATIONS: Dual antiplatelet therapy has been initiated. Statins are being continued. Beta blockers are being continued. He has been advised to continue to refrain from tobacco use. Job ID: [id number] DocumentID: [id number] Dictated Date: 04/28/2020 16:46:37 Industrial Commercial Groundskeeper Date: 04/28/2020 20:30:52 Dictated By: LULY HUNT MD, MA, FACP, FACC,
--- NOTE | 2020-04-28 22:40 | NUR ---
Pt arrived to floor via bed at this time accompanied by PROPERTY OFFICER Lynette and PCT. Rt groin site soft, non tender, distal pulses palpable, pt denies any pain. Slight shadowing marked on groin site dressing, PROPERTY OFFICER reported that shadowing has not exceeded border.
[2020-04-29] MEDS: NS IV 1000 ML 1,000 ML IV SCH (04:56)
[2020-04-29 05:18] LABS: HEMOGLOBIN 14.7 g/dL (13.3-17.7); MEAN PLATELET VOLUME 9.3 fL (9.0-12.2); WHITE BLOOD COUNT 7.2 10^3/uL (4.3-11.0)
[2020-04-29 05:36] LABS: CHLORIDE 106 MMOL/L (98-107); POTASSIUM 4.1 MMOL/L (3.6-5.0); SODIUM 135 MMOL/L (135-145)
[2020-04-29 05:38] LABS: CALCIUM 8.5 MG/DL (8.5-10.1); GLUCOSE 136 MG/DL (70-105)
[2020-04-29 05:39] LABS: CARBON DIOXIDE 20 MMOL/L (21-32)
[2020-04-29] MEDS: inSUlin ASPART (NovoLOG) 1 UNIT/0.01 ML (CHARGE PER UNIT) SC SCH (05:40)
[2020-04-29 05:42] LABS: CREATININE SERUM 0.73 MG/DL (0.60-1.30); GFR ESTIMATED > 60
[2020-04-29 05:43] LABS: BUN/CREATININE RATIO 15
[2020-04-29] MEDS: meTOproloL SUCCINATE 50 MG (TOPROL XL) TAB PO SCH (08:27)
[2020-04-29] MEDS: ENOXAPARIN 40 MG/0.4 ML (LOVENOX) SYR SC SCH (08:27)
[2020-04-29] MEDS ORDERED: CLOPIDOGREL 75 MG (PLAVIX) TABLET PO SCH (09:00)
--- NOTE | 2020-04-29 10:41 | Progress Note - Cardiology ---
Cardiology SOAP Progress Note Subjective: Sitting up in bed Denies any c/o CP, SOB, palpitations States he feels "great" Objective: I&O/Vital Signs 04/28/20 04/29/20 22:50 01:00 Temp 35.2 Pulse 88 75 Resp 16 B/P (MAP) 119/71 (87) Pulse Ox 95 O2 Delivery Room Air 04/29/20 00:00 Intake Total 460 ml Balance 460 ml Constitutional: AAO x 3, well-developed, well-nourished Respiratory: No accessory muscle use, No respiratory distress; chest expansion is symmetric, chest is bilaterally symmetric, lungs clear to auscultation Cardiovascular: regular rate-rhythm; No JVD; S1 and S2 Gastrointestional: No tender; soft, round, audible bowel sounds Extremities: no lower extremity edema bilateral Neurologic/Psychiatric: grossly intact (moves all extremities) Skin: No rash on exposed areas, No ulcerations on exposed areas Results/Procedures: Labs Laboratory Tests 04/28/20 10:57: Troponin I < 0.028 04/28/20 11:39: Glucometer 133H 04/28/20 11:50: Coronavirus 2019 (KATHERINE) Negative 04/28/20 20:53: Glucometer 130H 04/29/20 04:50: White Blood Count 7.2, Red Blood Count 5.15, Hemoglobin 14.7, Hematocrit 45, Mean Corpuscular Volume 87, Mean Corpuscular Hemoglobin 29, Mean Corpuscular H emoglobin Concent 33, Red Cell Distribution Width 13.3, Platelet Count 159, Mean Platelet Volume 9.3, Sodium Level 135, Potassium Level 4.1, Chloride Level 106, Carbon Dioxide Level 20L, Anion Gap 9, Blood Urea Nitrogen 11, Creatinine 0.73, Estimat Glomerular Filtration Rate > 60, BUN/Creatinine Ratio 15, Glucose Level 136H, Calcium Level 8.5 Microbiology 04/28/20 MRSA Screen - Final, Complete MRSA not isolated Laboratory Tests 04/27/20 22:50 04/28/20 05:35 04/29/20 04:50 A/P: Assessment: CAD - Cor stent placement at [facility] in 2011, details not known to the patient - Presentation with unstable angina on 04/28/19 - Card cath of 04/28/20 showed long 90% stenosis of prox, dominant RCA, stented successfully with Xience Huyen 2.75 x 28 mm stent; 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 PROFESSOR within a stented segment of the prox LCx extending into OM1 to which attempt at PCI was unsuccessful; 60- 70% prox D1, 50% mid LAD; LVEDP 11 mmHg; posterobasal hypokinesis of LV; LVEF 50-55% 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
[2020-04-29] MEDS ORDERED: CLOP75TA28 PO (10:45)
[2020-04-29] MEDS ORDERED: ATOR40TA PO (10:45)
[2020-04-29] MEDS ORDERED: METO50TA7 PO (10:45)
[2020-04-29] MEDS ORDERED: ASPI-999 PO (10:45)
--- NOTE | 2020-04-29 10:46 | Discharge Inst-Cardiology ---
Discharge Inst-Cardiac Discharge Medications New Medications: Aspirin (Aspirin) 81 Mg Tab.chew 81 MG PO DAILY, #90 TAB 3 Refills Atorvastatin Calcium (Lipitor) 40 Mg Tablet 40 MG PO HS, #90 TAB 3 Refills Clopidogrel Bisulfate (Clopidogrel) 75 Mg Tablet 75 MG PO DAILY, #90 TAB 3 Refills Metoprolol Succinate (Metoprolol Succinate) 50 Mg Tab.er.24h 50 MG PO DAILY, #90 TAB 3 Refills Discontinued Medications: Aspirin (Aspirin EC) 81 Mg Tablet.dr 81 MG PO DAILY, TAB Metoprolol Tartrate (Metoprolol Tartrate) 50 Mg Tablet 50 MG PO DAILY, TAB New, Converted or Re-Newed RX: Transmitted to Pharmacy Patient Instructions Patient Instructions: Please schedule follow up appointment to see Dr. Gilmore next week YAO BRAVO Apr 29, 2020 10:46
--- NOTE | 2020-04-29 11:33 | Discharge Summary ---
Discharge Summary Hospital Course Was the Problem List Reviewed?: Yes Problems/Dx: (1) Chest pain Status: Acute (2) CAD (coronary artery disease) Status: Chronic Qualifiers: Qualified Codes: I25.110 - Atherosclerotic heart disease of [place] coronary artery with unstable angina pectoris (3) HTN (hypertension) Status: Chronic (4) HLD (hyperlipidemia) Status: Acute (5) T2DM (type 2 diabetes mellitus) Status: Chronic Qualifiers: (6) Morbid obesity Status: Chronic Hospital Course Date of Admission: Apr 28, 2020 at 00:50 Admission Diagnosis : Chest pain Family Physician/Provider: Chivo Bautista MD Date of Discharge: 04/29/20 Discharge Diagnosis: Unstable angina Hospital Course: [place] Lei is a 59-year-old male who presented with chest pain and was admi tted with unstable angina. He underwent a left heart catheterization and underwent coronary stent placement in the right coronary artery. He was started on aspirin and Plavix. He was also started on metoprolol. He was started on Lipitor for hyperlipidemia. He was discharged home in stable condition. He will follow up with cardiology as scheduled. He should follow-up with his primary care physician in a week or two. Labs and Pending Lab Test: Laboratory Tests 04/28/20 11:39: Glucometer 133H 04/28/20 11:50: Coronavirus 2019 (KATHERINE) Negative 04/28/20 20:53: Glucometer 130H 04/29/20 04:50: White Blood Count 7.2, Red Blood Count 5.15, Hemoglobin 14.7, Hematocrit 45, Mean Corpuscular Volume 87, Mean Corpuscular Hemoglobin 29, Mean Corpuscular Hemoglobin Concent 33, Red Cell Distribution Width 13.3, Platelet Count 159, Mean Platelet Volume 9.3, Sodium Level 135, Potassium Level 4.1, Chloride Level 106, Carbon Dioxide Level 20L, Anion Gap 9, Blood Urea Nitrogen 11, Creatinine 0.73, Estimat Glomerular Filtration Rate > 60, BUN/Creatinine Ratio 15, Glucose Level 136H, Calcium Level 8.5 Microbiology 04/28/20 MRSA Screen - Final, Complete MRSA not isolated Home Meds Active Aspirin 81 Mg Tab.chew 81 Mg PO DAILY Metoprolol Succinate 50 Mg Tab.er.24h 50 Mg PO DAILY Lipitor (Atorvastatin Calcium) 40 Mg Tablet 40 Mg PO HS Clopidogrel (Clopidogrel Bisulfate) 75 Mg Tablet 75 Mg PO DAILY Reported Garlic 500 Mg Capsule 500 Mg PO DAILY Cinnamon (Cinnamon Bark) 500 Mg Capsule 500 Mg PO DAILY Aspirin EC (Aspirin) 81 Mg Tablet.dr 81 Mg PO DAILY Megared [place]-3 Krill 350 mg (Krill/Om-3/Dha/Epa/Phospho/Ast) 1 Each Capsule 1 Each PO DAILY Xigduo Xr 10 mg-1,000 mg Tab (Dapagliflozin/Metformin HCl) 1 Each Tab.bp.24h 1 Ea PO DAILY Metoprolol Tartrate 50 Mg Tablet 50 Mg PO DAILY Assessment/Pt Instructions take medications as prescribed. Follow up with cardiology. Follow-up with your primary care physician. Return with worsening chest pain or if you feel like y ou're getting worse. Discharge Planning: <30 minutes discharge planning Discharge Instructions Discharge Diet: ADA Diet Activity as Tolerated: Yes Discharge Physical Examination Vital Signs Vital Signs Date Time Temp Pulse Resp B/P (MAP) Pulse Ox O2 Delivery O2 Flow Rate FiO2 04/29/20 01:00 75 04/28/20 22:50 35.2 16 119/71 (87) 95 Room Air General Appearance: No Apparent Distress, Obese Respiratory: Lungs Clear, Normal Breath Sounds, No Respiratory Distress Cardiovascular: Regular Rate, Rhythm, No Edema, No Murmur Gastrointestinal: Normal Bowel Sounds, Non Tender, Soft Extremity: Normal Inspection, Non Tender, No Pedal Edema Skin: Normal Color, Warm/Dry Neurologic/Psychiatric: Alert, Oriented x3, No Motor/Sensory Deficits, Normal Mood/Affect Allergies: Coded Allergies: No Known Drug Allergies (Unverified , 04/27/20) Discharge Summary Date of Admission Apr 28, 2020 at 00:50 Date of Discharge Discharge Date: Apr 29, 2020 Discharge Time: 12:03 Admission Diagnosis Chest pain Consults/Procedures Consulations Cardiology Procedures left heart catheterization with coronary stenting Discharge Diagnosis unstable angina (1) CAD (coronary artery disease) Status: Chronic Qualifiers: Qualified Codes: I25.110 - Atherosclerotic heart disease of [place] coronary artery with unstable angina pectoris (2) HTN (hypertension) Status: Chronic (3) HLD (hyperlipidemia) Status: Acute (4) T2DM (type 2 diabetes mellitus) Status: Chronic Qualifiers: (5) Morbid obesity Status: Chronic SHARMILA QUESADA MD Apr 29, 2020 11:33
[2020-04-29 12:38] VITALS: BP 119/71
--- NOTE | 2020-04-29 17:37 | Progress Note - Cardiology ---
Cardiology SOAP Progress Note Subjective: No cp or palp or syncope or shortness of breath No groin discomfort or leg discoloration or leg discomfort No focal weakness No n/v Objective: I&O/Vital Signs 04/29/20 04/29/20 08:00 12:38 Temp 35.2 Pulse 75 Resp 16 B/P (MAP) 119/71 Pulse Ox 95 O2 Delivery Room Air Room Air 04/29/20 00:00 Intake Total 460 ml Balance 460 ml Constitutional: AAO x 3, well-developed, well-nourished Respiratory: No accessory muscle use, No respiratory distress; chest expansion is symmetric, chest is bilaterally symmetric, lungs clear to auscultation Cardiovascular: regular rate-rhythm; No JVD; S1 and S2 Gastrointestional: No tender; soft, round, audible bowel sounds Extremities: no lower extremity edema bilateral Neurologic/Psychiatric: grossly intact (moves all extremities) Skin: No rash on exposed areas, No ulcerations on exposed areas Results/Procedures: Labs Laboratory Tests 04/28/20 20:53: Glucometer 130H 04/29/20 04:50: White Blood Count 7.2, Red Blood Count 5.15, Hemoglobin 14.7, Hematocrit 45, Mean Corpuscular Volume 87, Mean Corpuscular Hemoglobin 29, Mean Corpuscular H emoglobin Concent 33, Red Cell Distribution Width 13.3, Platelet Count 159, Mean Platelet Volume 9.3, Sodium Level 135, Potassium Level 4.1, Chloride Level 106, Carbon Dioxide Level 20L, Anion Gap 9, Blood Urea Nitrogen 11, Creatinine 0.73, Estimat Glomerular Filtration Rate > 60, BUN/Creatinine Ratio 15, Glucose Level 136H, Calcium Level 8.5 Microbiology 04/28/20 MRSA Screen - Final, Complete MRSA not isolated Laboratory Tests 04/27/20 22:50 04/28/20 05:35 04/29/20 04:50 A/P: Assessment: CAD - Cor stent placement at [facility] in 2011, details not known to the patient - Presentation with unstable angina on 04/28/19 - Card cath of 04/28/20 showed long 90% stenosis of prox, dominant RCA, stented successfully with Xience Huyen 2.75 x 28 mm stent; LINE PATROLMAN within a stented segment of the prox LCx extending into OM1 to which attempt at PCI was unsuccessful; 60- 70% prox D1, 50% mid LAD; LVEDP 11 mmHg; posterobasal hypokinesis of LV; LVEF 50-55% 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
== END 2020-04-29 12:40 | disposition home or self-care (01) ==
LOC: EDUNIT# 22:38 → ER 22:40 → 4TH 04-28 00:50
PROVIDERS: ADMIT Internal Medicine; ATTEND Internal Medicine
DX: I25.110 Atherosclerotic heart disease of native coronary artery with unstable angina pectoris (principal); I10 Essential (primary) hypertension; E78.5 Hyperlipidemia, unspecified; E11.9 Type 2 diabetes mellitus without complications; E66.01 Morbid (severe) obesity due to excess calories; Z68.41 Body mass index [BMI] 40.0-44.9, adult; Z79.82 Long term (current) use of aspirin; Z79.899 Other long term (current) drug therapy; Z87.891 Personal history of nicotine dependence; Z20.828 Contact with and (suspected) exposure to other viral communicable diseases
CPT/HCPCS: 71045; 71275; 80048; 80053 ×2; 80061; 82962; 83690; 83735; 83874; 83880; 84484 ×2; 85025 ×2; 85027; 85610 ×2; 85730 ×2; 87081; 93005 ×3; 93458; 99284; C1725; C1760; C1769 ×4; C1874; C1887 ×2; C1894 ×2; C9600; G0378; U0002; 36415; 87635

== ENCOUNTER → 2023-01-17 | Outpatient (CLI) | payer BC ==
[~2023-01-17] MED LIST: ASPI-1238 PO; ASPI-999 PO; ATOR40TA PO; CATHETER FLUSH 10 ML SYR IVP PRN; CINN500C2 PO; CLOP75TA28 PO; DAPA1TAB5 PO; GARL500C2 PO; KRIL1CAP35 PO; METO50TA15 PO; METO50TA7 PO; REGADENOSON 0.4 MG/5 ML SYR IV ONE
[2023-01-17 09:11] VITALS: BP 136/94
[2023-01-17 09:21] VITALS: BP 137/93
--- NOTE | 2023-01-19 20:05 | STRESS TEST ---
DATE OF SERVICE: 01/17/2023 RESTING AND POST REGADENOSON TECHNETIUM-99M TETROFOSMIN SPECT CT IMAGING ORDERING PHYSICIAN: Margy Henderson APRN. PRIMARY PHYSICIAN: Dr. Bautista. CLINICAL DIAGNOSIS: Coronary artery disease. Baseline images were carried out after injection of 10.45 mCi of technetium-99m tetrofosmin. This was followed by 0.4 mg regadenoson and 29.8 mCi of technetium-99m tetrofosmin for stress imaging. The electrocardiogram showed sinus rhythm at baseline. It did not change significantly with regadenoson infusion. The patient tolerated the procedure well. Review of images at rest and following stress indicates a predominantly fixed lateral perfusion defect. Gated images show lateral akinesis. Left ventricular ejection fraction is calculated to be 51%. CONCLUSIONS: 1. Moderate-sized lateral wall myocardial infarction without significant ischemia. 3. Lateral wall akinesis. 4. Left ventricular ejection fraction 51%. Job ID: [id number] DocumentID: [id number] Dictated Date: 01/19/2023 18:39:00 [employer] Date: 01/19/2023 20:03:00 Dictated By: LULY HUNT MD; JAH; FACP; FACC;
== END ==
LOC: CARD 07:32
PROVIDERS: ATTEND Nurse Practitioner Family
DX: I25.10 Atherosclerotic heart disease of native coronary artery without angina pectoris (principal)
CPT/HCPCS: 78452; 93017; A9502